=== PATIENT | female | born 1975 | race Caucasian/White ===

== ENCOUNTER 2016-03-30 12:13 | Inpatient (IN) | payer OTHER ==
[~2016-03-30] VITALS: Ht 157.5 cm; Wt 71.1 kg
[2016-03-31] MEDS ORDERED: CLB/200 PO (16:59)
[2016-03-31] MEDS ORDERED: AMOX500C3 PO (16:59)
[2016-03-31] MEDS ORDERED: BACL1TAB PO (17:02)
[2016-03-31] MEDS ORDERED: SODIUM CHLORIDE 0.65% NA SOLN 45 ML (OCEAN) PRN (18:00)
[2016-03-31] MEDS ORDERED: MAGNESIUM HYDROXIDE SUSP 30 ML UDC PO PRN (18:00)
[2016-03-31] MEDS ORDERED: BISMUTH SUBSALICYLATE PER ML OMNICELL CHARGE PO PRN (18:00)
[2016-03-31] MEDS ORDERED: ALUMINUM/MAGNESIUM SUSP 30 ML UDC PO PRN (18:00)
[2016-03-31] MEDS ORDERED: NURSING VERBAL MED ORDER ONE (18:00)
[2016-03-31] MEDS ORDERED: hydrOXYzine HCL 25 MG TAB PO PRN ×2 (18:00)
[2016-03-31] MEDS ORDERED: ACETAMINOPHEN 325 MG TAB PO PRN (18:00)
[2016-03-31 20:44] VITALS: BP 138/91; PULSE 85; TEMP 36.9; Ht 157.5 cm; Wt 71.1 kg
[2016-03-31] MEDS: AMOXICILLIN 500 MG CAP PO SCH (21:53)
[2016-03-31] MEDS: CeleBREX 200 MG CAP PO SCH (21:53)
[2016-04-01 06:51] VITALS: BP_SYST 115; BP_SYST 125; BP_DIAS 79; PULSE 91; PULSE 96; TEMP 37
[2016-04-01] MEDS: CeleBREX 200 MG CAP PO SCH ×2 (09:08→21:51)
[2016-04-01] MEDS: AMOXICILLIN 500 MG CAP PO SCH ×3 (09:09→21:50)
[2016-04-01] MEDS ORDERED: DULOXETINE (CYMBALTA) 30 MG CAP PO ONE (11:30)
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
[2016-04-02 06:52] VITALS: BP_SYST 121; BP_SYST 125; BP_DIAS 84; BP_DIAS 87; PULSE 73; PULSE 86; TEMP 36.8
[2016-04-02] MEDS: AMOXICILLIN 500 MG CAP PO SCH ×2 (08:58→14:18)
[2016-04-02] MEDS: CeleBREX 200 MG CAP PO SCH ×2 (08:59→21:13)
[2016-04-02] MEDS: DULOXETINE (CYMBALTA) 30 MG CAP PO SCH (08:59)
--- NOTE | 2016-04-02 10:47 | Psychiatric Progress Notes ---
Progress Note Date of Service Apr 02, 2016. Interval History 40 yo female initially admitted to [facility] following an intentional OD after asked for a divorce. She was transferred to our facility voluntarily on 03/31/16 to be closer to her home and family in [place]. Chief Complaint "OK". Subjective Patient was seen & assessed interval progress reviewed with Treatment Team. The patient had a meeting with her yesterday and the outcome "was not was I expected.". She said that he still wants them to live separately for a while until they each have a chance to think, perhaps as long as several months. He would like to table couples therapy until they have had this period to think. She describes it as "not done, just paused.". Her anxiety remains high, but denies panic. Her sleep was "a little bit" last night, but still struggling to stay asleep. Her appetite is low, describing having a "sick, nervous stomach" when she thinks about eating. She plans to stay with her parents at discharge and her parents visited last evening, and are fully aware of the situation. She denies any further SI today. She continues to have numbness in her left lower extremity and is asking to have it evaluated. Review of Systems Constitutional: + fatigue ENT: No dental problems, No hearing loss, No nasal symptoms, No problem reported, No sore throat, No tinnitus, No trouble swallowing, No unusual epistaxis Respiratory: No cough, No dyspnea at rest, No dyspnea on exertion, No hemoptysis, No problem reported, No shortness of breath, No sputum, No wheezing Cardiovascular: No PND, No chest pain, No claudication, No edema, No orthopnea , No palpitations, No problem reported Abdomen: No GI bleeding, No constipation, No diarrhea, No nausea, No pain, No problem reported, No vomiting Musculoskeletal: No calf pain, No joint pain, No muscle pain, No problem reported, No swelling Neurologic: No balance problems, No memory loss, No numbness/tingling, No paralysis, No problem reported, No vertigo, No weakness Psychiatric: + anxiety, + depression symptoms, + insomnia Integumentary: No bleeding, No color change, No itch, No new/changing skin lesions, No problem reported, No rash Sleep Information Total Hours of Sleep: 7.25 Meal Information Percent of Breakfast Consumed: 100 Percent of Lunch Consumed: 50 Percent of Dinner Consumed: 75 Mental Status Exam During interview pt is: alert and oriented, cooperative Appearance: appropriately dressed, appropriately groomed Eye contact is: good Motor behavior is: steady gait & station, no abnormal motor movements Speech: normal in rate, rhythm & volume Affect: tearful Mood is: depressed, anxious Thought process: goal directed, clear, coherent Thought content: reality based without delusions Suicidal thought are: denied Homicidal thoughts are: denied Hallucinations: denies auditory, denies visual Cognition: memory grossly intact, attention grossly intact Intelligence estimated to be: average Insight: impaired Judgement: impaired Impression The patient is adjusting to the structure and support of the milieu. now saying he wants a separation before considering how they move forward. She continues to be sad about this, but understands his position and willing to agree to it. She will go to her parents home. her anxiety remains high, and not sleeping. Started Cymbalta 30 mg. yesterday and will continue another day or two before increasing. Will also need aftercare. Will order a medicine consult to evaluate left lower extremity numbness. Continued Inpatient Care The patient requires inpatient care due to the severity of her condition, and the risk for self harm if discharged. Plan (1) Major depressive disorder, single episode, severe without psychotic features 04/02 - Continue Cymbalta 30 mg. daily titrating as tolerated - Family meeting with held yesterday - Arrange aftercare - Q 15 min checks for safety - Encourage participation in group and individual counseling. - Assist the patient to learn and utilize additional healthy coping strategies. (2) RITA (generalized anxiety disorder) 04/02 - Meds as above - Expose the patient to mindfulness, relaxation exercises, breathing exercises. - Encourage exercise - Prn vistaril for anxiety or sleep (3) Ankylosing spondylitis 04/02 - Hysterectomy 1.5 months ago has been helpful in alleviating pain - Will continue Celebrex 200 mg. BID Discharge / Aftercare Planning Primary Care Physician: Name: Briankristine martinez [place] Visit Code E&M Code: 95221 Risk Factors Assessment : Yes /single/: Yes () Higher / Fall in social status: No Access to guns: No Health problems: Yes Mental Health Diagnoses: No Substance use disorders: No Previous attempt: No Previous psychiatric stay: No Smoker: No Protective Factors Assessment Judaism beliefs: Yes : Yes Employed: Yes Stable relationships: No Supportive family: Yes Data Vital Signs Last 24 Hrs: Date Time Temp Pulse Resp B/P Pulse Ox O2 Delivery O2 Flow Rate FiO2 04/02/16 06:52 36.8 73 16 125/87 86 121/84 Meds Administered Last 24 Hrs: Meds Administered (Past 24Hrs) Medications (Trade) Dose Ordered Sig/Rashmi Route Start Time Stop Time Status Last Admin Dose Admin Amoxicillin (Amoxil Cap) 500 mg TID PO 03/31/16 22:00 04/02/16 21:59 04/02/16 08:58 500 MG Celecoxib (CeleBREX CAP) 200 mg BID PO 03/31/16 22:00 04/30/16 21:59 04/02/16 08:59 200 MG Duloxetine HCl (Cymbalta Cap) 30 mg QAM PO 04/02/16 09:00 05/02/16 08:59 04/02/16 08:59 30 MG Duloxetine HCl (Cymbalta Cap) 30 mg TODAY@1130 ONCE PO 04/01/16 11:30 04/01/16 11:31 DC 04/01/16 11:57 30 MG Lab Results Last 24 Hrs: Last 24 Hours Test 04/01/16 10:57 Thyroid Stimulating Hormone (TSH) 0.717 uIu/ml
[2016-04-02] MEDS ORDERED: CYCLOBENZAPRINE HCL 5 MG TAB PO PRN (13:30)
--- NOTE | 2016-04-02 14:29 | Medical Consult ---
Consultation Date of Consultation: Apr 02, 2016. Attending Physician: Diandra Garcia MD Reason for Consultation: LLE numbness History of Present Illness This is a 40 y/o female with a history of Factor V Leiden deficiency, ankylosing spondylitis, anxiety, and Scales's neuroma of the left foot who presents with left lower extremity numbness. The patient had an intentional overdose of baclofen, ibuprofen, and Percocet, causing her to be life-flighted to [facility] in [place] and intubated. When she was medically stable, she was transferred to the mental health unit here on 03/31 to be closer to her family. The patient complains of left lower extremity weakness since the overdose first occurred on 03/28. She does have a history of Scales's neuroma in her left foot and has some numbness and burning pain at the ball of her left foot at baseline. Since the overdose, however, her entire left foot feels numb and tingling, and she has tightness going up the back of her left leg. The patient states that she sometimes has difficulty walking because she has decreased sensation in her foot. She complains of a 3/10 burning pain in her foot, especially on the plantar surface. She has not noticed anything that makes it better or wrose. She also complains of numbness on the right side of lips. She has been more sweaty than usual and complains of dizziness upon standing. She has not had much appetite but is tolerating a PO diet. The patient denies fevers, chills, chest pain, palpitations, claudication, cough, wheezing, shortness of breath, nausea, vomiting, abdominal pain, dysuria, hematuria, urinary retention, paralysis, and weakness. Past Medical/Surgical History Medical Problems: (1) Ankylosing spondylitis Status: Chronic (2) RITA (generalized anxiety disorder) Status: Chronic (3) Major depressive disorder, single episode, severe without psychotic features Status: Acute Factor V Leiden deficiency H/o hysterectomy 02/19 Family History Coronary artery disease Diabetes mellitus Factor V Leiden mutation Hyperlipidemia Hypertension Social History Smoking Status: Former Smoker (quit 10 years ago) Smokeless Tobacco Use: No Alcohol Use: socially (3-4 beers once a week when going out) Drug Use: none Marital Status: Housing Status: lives with significant other ( just prior to admission , had been living with friend for a few days) Occupation Status: employed Allergies Coded Allergies: Garlic (Unverified Adverse Reaction, Intermediate, face reddens, nose runs , 03/31/16) Apple (Unverified Adverse Reaction, Mild, nose runs, face reddened, ) [place] (Unverified Adverse Reaction, Mild, face reddens, nose runs, 03/31/16 ) Uncoded Allergies: turkey (Adverse Reaction, Mild, face reddened, nose runs, 03/31/16) Current Inpatient Medications Current Inpatient Medications Medications (Trade) Dose Ordered Sig/Rashmi Route Start Time Stop Time Status Last Admin Dose Admin Acetaminophen (Tylenol Tab) 650 mg Q4H PRN PO 03/31/16 18:00 04/30/16 17:59 Al Hydroxide/Mg Hydroxide (Maalox Susp) 30 ml Q4H PRN PO 03/31/16 18:00 04/30/16 17:59 Bismuth Subsalicylate (Kaopectate Liqd) 15 ml DAILY PRN PO 03/31/16 18:00 04/30/16 17:59 Magnesium Hydroxide (Milk Of Magnesia Susp) 30 ml DAILY PRN PO 03/31/16 18:00 04/30/16 17:59 Sodium Chloride ([place] Nasal [place]) PRN PRN NA 03/31/16 18:00 04/30/16 17:59 Hydroxyzine HCl (Vistaril Tab) 50 mg HSZ PRN PO 03/31/16 18:00 04/30/16 17:59 Hydroxyzine HCl (Vistaril Tab) 25 mg Q4H PRN PO 03/31/16 18:00 04/30/16 17:59 Amoxicillin (Amoxil Cap) 500 mg TID PO 03/31/16 22:00 04/02/16 21:59 04/02/16 08:58 500 MG Celecoxib (CeleBREX CAP) 200 mg BID PO 03/31/16 22:00 04/30/16 21:59 04/02/16 08:59 200 MG Duloxetine HCl (Cymbalta Cap) 30 mg QAM PO 04/02/16 09:00 05/02/16 08:59 04/02/16 08:59 30 MG Review of Systems See HPI for pertinent positives and negatives. All other systems reviewed and negative. Physical Exam Date Time Temp Pulse Resp B/P Pulse Ox O2 Delivery O2 Flow Rate FiO2 04/02/16 06:52 36.8 73 16 125/87 86 121/84 General Appearance: WD/WN, no apparent distress Head: normocephalic, atraumatic Eyes: normal inspection, PERRL, EOMI ENT: normal ENT inspection, hearing grossly normal, pharynx normal Neck: supple, no JVD, trachea midline Respiratory/Chest: lungs clear, normal breath sounds, no respiratory distress Cardiovascular: regular rate, rhythm, no gallop, no murmur Abdomen/GI: normal bowel sounds, non tender, soft Extremities/Musculoskelatal: normal inspection, no calf tenderness, normal capillary refill, no pedal edema, + pertinent finding (left foot TTP) Neurologic/Psych: alert, normal mood/affect, oriented x 3, + motor weakness ( weakness in left foot especially with plantar flexion, 4/5), + abnormal reflexes (absent Babinski reflex left side) Skin: normal color, warm/dry, no rash Assessment & Plan 40 y/o female with a history of Factor V Leiden deficiency, ankylosing spondylitis, anxiety, and Scales's neuroma of the left foot who presents with left lower extremity numbness. C/o burning pain and numbness in entire left foot, especially plantar surface. Tightness going up back of left leg. Numbness in lips on right side. Symptoms began after overdose 03/28 and subsequent intubation. No improvement over last week. Neuropathy -TSH WNL at 0.717 -Check B12 and folate levels -H/o ankylosing spondylitis, could contribute to neuropathy. X-ray of SI joint 3 view ordered -Trial of gabapentin 300 mg PO TID for neuropathic pain -H/o Scales's neuroma may be contributing as well as recent overdose and intubation -Continue to monitor for change in symptoms/severity Anxiety, intentional overdose suicide attempt -As per psych -Continue Cymbalta 30 mg PO qd and hydroxyzine 25 mg PO q4h prn anxiety Code Status -Level I, FULL RESUSCITATION STATUS Thank you for this consultation. We will continue to follow. Reviewed: Pt Seen/Exam by Me, RN Notes, HO Notes, Prior Records, Labs, RAD, EKG History I agree with PA medical consult except for some modifications as below: A 40 yo female with a history of Factor V Leiden deficiency, ankylosing spondylitis, anxiety, and Scales's neuroma of the left foot who presents with left lower extremity numbness. C/o burning pain and numbness in entire left foot, especially plantar surface. Tightness going up back of left leg. Numbness in lips on right side. Symptoms began after overdose 03/28 and subsequent intubation. Currently complains of burning pain in her left foot with occasional muscle cramps. Constitutional: denies: chills EENTM: denies: tearing Respiratory: negative: cough Gastrointestinal/Abdominal: negative: abdominal pain Genitourinary: negative discharge Musculoskeletal: negative: back pain Skin: negative: change in color Neurological/Psych: negative: anxiety Hematologic/Lymphatic: negative: anemia General Appearance: WD/WN, no apparent distress Eye Exam: bilateral eye normal inspection Ears, Nose, Throat: hearing grossly normal Neck: full range of motion, normal inspection Respiratory: chest non-tender, normal breath sounds Cardiovascular: regular rate, rhythm, no gallop Gastrointestinal: normal bowel sounds, soft Extremities: normal range of motion, non-tender, no pedal edema, slow capillary refill Neurologic/Psychiatric: fine artist II-XII nml as tested, no motor/sensory deficits, alert, normal mood/affect, other (normal gait) Skin Characteristics: other (cold to touch, some mottling left foot present, decreased pulses b/l, babinski negative) Assessment/Plan A 40 yo female with a history of Factor V Leiden deficiency, ankylosing spondylitis, anxiety, and Scales's neuroma of the left foot who presents with left lower extremity numbness. C/o burning pain and numbness in entire left foot, especially plantar surface. Tightness going up back of left leg. Numbness in lips on right side. Symptoms began after overdose 03/28 and subsequent intubation. Peripheral Neuropathy likely secondary to underlying scales`s neuroma symptoms exacerbated by recent drug overdose TSH WNL at 0.717 Check B12 and folate levels start gabapentin 300 mg PO TID for neuropathic pain Continue to monitor for change in symptoms/severity If symptoms are worse, may consult neurology and will require outpatient EMG/ nerve conduction studies done may need Flexeril if spasms continued to persists H/o ankylosing spondylitis, could contribute to neuropathy. X-ray of SI joint: no active inflammation Anxiety, intentional overdose suicide attempt psych is primary attending Continue Cymbalta 30 mg PO qd and hydroxyzine 25 mg PO q4h prn anxiety Code Status: FULL RESUSCITATION STATUS case discussed with Eli Hanna time spent 40 min
--- NOTE | 2016-04-02 15:01 | DIAGNOSTIC IMAGING REPORT ---
SI JOINTS 3 OR MORE VIEWS CLINICAL HISTORY: There are a few. Spondylitis. COMPARISON STUDY: No previous studies for comparison. FINDINGS: There is a 12 mm sclerotic lesion within the left supra-acetabular region. In the absence of a known primary malignancy, this likely represents a bone island. There are sclerotic changes involving the iliac side of the right SI joint. There is no SI joint fusion. There are no erosive changes to indicate an inflammatory sacroiliitis. IMPRESSION: 1. Presumed bone island involving the left supra acetabular region 2. Mild osteitis condensans ilii 3. No evidence of an inflammatory sacroiliitis Electronically signed by: Sam Rodriguez M.D. 04/02/2016 3:00 PM Dictated Date/Time: 04/02/2016 2:56 PM
[2016-04-02] MEDS: GABAPENTIN 300 MG CAP PO SCH (21:13)
[2016-04-03 06:50] VITALS: BP_SYST 114; BP_SYST 125; BP_DIAS 63; BP_DIAS 76; PULSE 70; PULSE 79; TEMP 36.9
[2016-04-03] MEDS: GABAPENTIN 300 MG CAP PO SCH ×3 (08:17→21:55)
[2016-04-03] MEDS: CeleBREX 200 MG CAP PO SCH ×2 (08:17→21:55)
[2016-04-03] MEDS: DULOXETINE (CYMBALTA) 30 MG CAP PO SCH (08:17)
--- NOTE | 2016-04-03 11:52 | Progress Note ---
Subjective Subjective Date of Service: Apr 03, 2016. Pt evaluation today including: conversation w/ patient, physical exam, chart review, review of studies, review of inpatient medication list Problem List Medical Problems: (1) Ankylosing spondylitis Status: Chronic (2) RITA (generalized anxiety disorder) Status: Chronic (3) Major depressive disorder, single episode, severe without psychotic features Status: Acute Review of Systems Constitutional: No fever ENT: No hearing loss Respiratory: No cough Cardiac: No chest pain Abdomen: No pain Musculoskeletal: + problem reported (left foot numbness persists) Female : No dysuria Neurologic: No memory loss Endo: No fatigue Physical Exam Vital Signs Vital Signs Past 24 Hours: Date Time Temp Pulse Resp B/P Pulse Ox O2 Delivery O2 Flow Rate FiO2 04/03/16 06:50 36.9 70 16 114/76 79 125/63 Physical Exam: General Appearance: WD/WN, no apparent distress Eyes: bilateral eyes normal inspection ENT: hearing grossly normal, pharynx normal Neck: supple, no JVD Respiratory/Chest: chest non-tender, no respiratory distress Cardiovascular: no gallop, no murmur Abdomen: non tender, no organomegaly Extremities: non-tender, no pedal edema, + pertinent finding (tenderness on palpation left foot base of toes, patient is shuffling when walks) Neurologic/Psychiatric: no motor/sensory deficits, normal mood/affect Skin: no rash Medications Medications: Current Inpatient Medications Medications (Trade) Dose Ordered Sig/Rashmi Route Start Time Stop Time Status Last Admin Dose Admin Acetaminophen (Tylenol Tab) 650 mg Q4H PRN PO 03/31/16 18:00 04/30/16 17:59 Al Hydroxide/Mg Hydroxide (Maalox Susp) 30 ml Q4H PRN PO 03/31/16 18:00 04/30/16 17:59 Bismuth Subsalicylate (Kaopectate Liqd) 15 ml DAILY PRN PO 03/31/16 18:00 04/30/16 17:59 Magnesium Hydroxide (Milk Of Magnesia Susp) 30 ml DAILY PRN PO 03/31/16 18:00 04/30/16 17:59 Sodium Chloride ([place] Nasal [place]) PRN PRN NA 03/31/16 18:00 04/30/16 17:59 Hydroxyzine HCl (Vistaril Tab) 50 mg HSZ PRN PO 03/31/16 18:00 04/30/16 17:59 Hydroxyzine HCl (Vistaril Tab) 25 mg Q4H PRN PO 03/31/16 18:00 04/30/16 17:59 Celecoxib (CeleBREX CAP) 200 mg BID PO 03/31/16 22:00 04/30/16 21:59 04/03/16 08:17 200 MG Duloxetine HCl (Cymbalta Cap) 30 mg QAM PO 04/02/16 09:00 05/02/16 08:59 04/03/16 08:17 30 MG Gabapentin (Neurontin Cap) 300 mg TID PO 04/02/16 22:00 05/02/16 21:59 04/03/16 08:17 300 MG Laboratory Data Labs: Last 24 Hours Test 04/02/16 14:51 Vitamin B12 Level 1351 pg/mL Folate 20.42 ng/mL Assessment and Plan A 40 yo female with a history of Factor V Leiden deficiency, ankylosing spondylitis, anxiety, and Scales's neuroma of the left foot who presents with left lower extremity numbness. C/o burning pain and numbness in entire left foot, especially plantar surface. Tightness going up back of left leg. Numbness in lips on right side. Symptoms began after overdose 03/28 and subsequent intubation. Peripheral Neuropathy likely secondary to underlying scales`s neuroma symptoms exacerbated by recent drug overdose, not improving TSH WNL at 0.717 B12 and folate levels ok cont gabapentin 300 mg PO TID for neuropathic pain Continue to monitor for change in symptoms/severity consult neurology and will require outpatient EMG/nerve conduction studies done PT/OT eval check cortisol, hgba1c levels check metanephrines due to profuse sweating H/o ankylosing spondylitis, could contribute to neuropathy. X-ray of SI joint: no active inflammation Anxiety, intentional overdose suicide attempt psych is primary attending Continue Cymbalta 30 mg PO qd and hydroxyzine 25 mg PO q4h prn anxiety Code Status: FULL RESUSCITATION STATUS
--- NOTE | 2016-04-03 12:37 | Psychiatric Progress Notes ---
Progress Note Date of Service Apr 03, 2016. Interval History 40 yo female initially admitted to [facility] following an intentional OD after asked for a divorce. She was transferred to our facility voluntarily on 03/31/16 to be closer to her home and family in [place]. Chief Complaint "Mood less depressed". Subjective Patient was seen & assessed interval progress reviewed with nursing staff. Patient reports that her mood is gradually improving and she is more hopeful. She feels saddened with plan to remain from her but feels well supported by her parents and their willingness for patient to stay with them after discharge. Appreciate Medicine consultation and recommendations to address left lower extremity numbness. Patient denies any thoughts to harm herself or others. Denies any current side effects from medications but admits that she experienced mild nausea when she first initiated Cymbalta. Review of Systems Psych: denies symptoms other than stated above Constitutional: Sleeping 7 1/2 hours per night. Energy level good. Appetite good. Cardiovascular: denied GI: denied Neurologic: denied Remainder of 10 body systems also reviewed and denied other than noted above. Sleep Information Total Hours of Sleep: 7.50 Meal Information Percent of Breakfast Consumed: 100 Percent of Lunch Consumed: 75 Percent of Dinner Consumed: 100 Mental Status Exam During interview pt is: alert and oriented, cooperative Appearance: appropriately dressed, appropriately groomed Eye contact is: good Motor behavior is: steady gait & station, no abnormal motor movements Speech: normal in rate, rhythm & volume Affect: tearful Mood is: depressed, anxious Thought process: goal directed, clear, coherent Thought content: reality based without delusions Suicidal thought are: denied Homicidal thoughts are: denied Hallucinations: denies auditory, denies visual Cognition: memory grossly intact, attention grossly intact Intelligence estimated to be: average Insight: limited Judgement: limited Impression The patient is adjusting to the structure and support of the milieu. now saying he wants a separation before considering how they move forward. She continues to be sad about this, but understands his position and willing to agree to it. She will go to her parents home. her anxiety remains high, and not sleeping. Started Cymbalta 30 mg. yesterday and will continue another day or two before increasing. Will also need aftercare. Will order a medicine consult to evaluate left lower extremity numbness. Continued Inpatient Care The patient requires inpatient care due to the severity of her condition, and the risk for self harm if discharged. Plan (1) Major depressive disorder, single episode, severe without psychotic features 04/02 - Continue Cymbalta 30 mg. daily titrating as tolerated - Family meeting with held yesterday - Arrange aftercare - Q 15 min checks for safety - Encourage participation in group and individual counseling. - Assist the patient to learn and utilize additional healthy coping strategies. 04/03 -Increase Cymbalta to 60mg to further address depression and anxiety. (2) RITA (generalized anxiety disorder) 04/02 - Meds as above - Expose the patient to mindfulness, relaxation exercises, breathing exercises. - Encourage exercise - Prn vistaril for anxiety or sleep 04/03 -Increase Cymbalta to 60mg to further address depression and anxiety. (3) Ankylosing spondylitis 04/02 - Hysterectomy 1.5 months ago has been helpful in alleviating pain - Will continue Celebrex 200 mg. BID Discharge / Aftercare Planning Primary Care Physician: Name: Brian martinez [place] Visit Code E&M Code: 57815 Risk Factors Assessment : Yes /single/: Yes () Higher / Fall in social status: No Access to guns: No Health problems: Yes Mental Health Diagnoses: No Substance use disorders: No Previous attempt: No Previous psychiatric stay: No Smoker: No Protective Factors Assessment Congregation beliefs: Yes : Yes Employed: Yes Stable relationships: No Supportive family: Yes Data Vital Signs Last 24 Hrs: Date Time Temp Pulse Resp B/P Pulse Ox O2 Delivery O2 Flow Rate FiO2 04/03/16 06:50 36.9 70 16 114/76 79 125/63 Meds Administered Last 24 Hrs: Meds Administered (Past 24Hrs) Medications (Trade) Dose Ordered Sig/Rashmi Route Start Time Stop Time Status Last Admin Dose Admin Duloxetine HCl (Cymbalta Cap) 30 mg QAM PO 04/02/16 09:00 05/02/16 08:59 04/03/16 08:17 30 MG Gabapentin (Neurontin Cap) 300 mg TID PO 04/02/16 22:00 05/02/16 21:59 04/03/16 08:17 300 MG Lab Results Last 24 Hrs: Last 24 Hours Test 04/02/16 14:51 Vitamin B12 Level 1351 pg/mL Folate 20.42 ng/mL
--- NOTE | 2016-04-03 13:50 | CONSULTATION REPORT ---
DATE OF CONSULTATION: 04/03/2016 Consultation for Diandra Garcia MD of psychiatry. HISTORY OF PRESENT ILLNESS: Lian is 40 years old, is known to Dr. Sulma Torres of [facility] and has factor V Leiden deficiency, ankylosing spondylitis, anxiety and Zhao neuroma of left foot. She is known to our rheumatology practice out in [facility] She had a recent hysterectomy and thinks this helps her ankylosing spondylitis pain. She does have a history of back pain, claims she has had some spinal imaging studies which do not show any significant nerve root compromise, but again I do not have details of what imaging might have been done. She had an intentional overdose of baclofen, ibuprofen and Percocet, causing her to be life flighted to [facility] in [place], intubated and was then transferred back here when medically stable and has been here about 2 days. She resides in [place], so it was felt that her psychiatric care should be rendered closer to home. She has no real recall of many of the events at [facility] other than the fact that she apparently was intubated and tried to pull the tube out and may have damaged the right side of her lips and was told by the [facility] staff that the numbness she had after this attempt would gradually disappear. She still has some of it and it is not clear how long it was anticipated this would persist. The other issue that evolved was that of numbness involving the distal portions of the left leg and dorsum of the foot along with some paresthetic painful sensations in that same distribution and a left mild foot drop. There was no particular back pain or increase in her chronic back pain and it is not clear how she was positioned, how long she had been in the automobile, whether her knee had been compressed or whether she had prolonged compression of her gluteal region. She right now is bothered by the paresthesias which have not improved much, although she thinks may be a little better and a mild degree of clumsiness when walking and slight left foot drop. She really does not have any sciatica, gluteal pain, posterior hamstring pain but does have a little tenderness over the lateral aspect of her leg near the fibular head. PAST MEDICAL HISTORY: Otherwise unremarkable, includes ankylosing spondylitis, generalized anxiety disorder, major depression, factor V Leiden deficiency and a history of recent hysterectomy on 02/20/16. FAMILY HISTORY: Positive for coronary artery disease, diabetes, factor V Leiden mutation, dyslipidemia and hypertension. SOCIAL HISTORY: Reveals her to be a former smoker. She drinks 3-4 beers once a week when going out. She does not use illicit drugs. She is . She lives with her significant other and she is employed. ALLERGIES: SHE HAS ALLERGIES TO GARLIC, APPLE AND PEACH AND POSSIBLY TURKEY. MEDICATIONS: At home include Tylenol as needed, magnesium hydroxide, sodium chloride nasal spray, hydroxyzine for itching, amoxicillin, Celebrex, Cymbalta and now Neurontin has been added to help her pain. REVIEW OF SYSTEMS: Pretty unremarkable other than the overdose. She has had no systemic illnesses. No problems referable to head, eyes, ears, nose and throat, cardiovascular, pulmonary, gastrointestinal, genitourinary, or musculoskeletal systems other than those described above under her past medical history and history of present illness. Neurologically, she has never had any similar symptoms other than the pain in the left foot due to the Zhao neuroma which is usually in the plantar surface and does not radiate up. She really denies any history of prior sciatica in the left or right side, but has had some nonspecific nonradiating low back pain. PHYSICAL EXAMINATION: VITAL SIGNS: Upon admission, her blood pressure is 125/87, pulse was 73 and regular. She was afebrile. Respirations 16. GENERAL: She is well developed, well nourished. HEENT: Normal examination. CARDIOVASCULAR: Normal without murmurs, gallops or abnormal rhythm. LUNGS: Her lungs were clear. ABDOMEN: Soft, nontender. EXTREMITIES: Examination was unremarkable. NEUROLOGIC: Today, she is awake, alert, oriented in 3 spheres. She has normal extraocular movements, normal visual obrien, normal facial motility and strength. There is a slight degree of numbness in the circumoral area in the right face to touch, but this does not spread out over the distribution of any single division of the trigeminal nerve. Tongue protrudes in the midline. Speech is clear. Gait, station and coordination reveal some mild steppage component to her gait on the left. Otherwise, there is no spasticity, ataxia, drift, pronation sign, tremor, tics or choreiform activity. Reflexes are all 1+ symmetrical. One could argue that the left ankle jerk is a little down, but this is pretty subtle. Toe signs are flexor. Strength testing reveals mild, perhaps one-grade weakness in the anterior tibialis, extensor hallucis longus and extensor digitorum brevis muscles and perhaps in the peroneus longus. I think the inverters of the foot on the left are normal. Plantar flexion is normal. Hamstrings are normal, quadriceps strength is normal. On the right, there is absolutely no muscle weakness. There is a little subjective alteration in the appreciation of light touch and perhaps temperature over the left anterior compartment and dorsum of the foot and there is tenderness of the left peroneal to palpation of the fibular head with some radiation of paresthesias, joseph to a Tinel sign. Straight leg raising is negative. External and internal rotation about the hip is normal. My suspicions are that the right circumoral paresthesias are indeed due to pressure placed on some of the branches of the trigeminal nerve in the region of the lips secondary to her attempted self extubation. This may persist for some time but I do not think we really need to do any imaging studies as she has no other findings that would suggest a vascular event or brain stem lesion. Furthermore, she had 1 imaging study there, i.e. 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 The left leg issue I think is due to a common peroneal mononeuropathy, probably due to compression, possibly due to her stuporous state in the automobile with compression of the nerve against the car seat or another hard object. It is possible this occurred after she was intubated and positioned at the [facility]. I do not think there is an L5 motor radiculopathy based on exam. At this point, there is not much we can do other than offer a tincture of time and caution against crossing her legs, particularly left over right. I could easily see her in about a month to perform an EMG at [facility] and at the time of discharge I would suggest she be scheduled for this. I can review the current note, do the study and if there is evidence on that for an L5 motor radiculopathy, then we will probably do an MRI of the back but for now, I do not think we need to do this as I am strongly suspicious that this is peroneal neuropathy and will improve with time. I do not think I need to see her on a regular basis while in the hospital. Please call me again if things decline or if her condition changes. MG
[2016-04-04 06:52] VITALS: BP_SYST 107; BP_SYST 110; BP_DIAS 68; BP_DIAS 75; PULSE 66; PULSE 72; TEMP 36.8
[2016-04-04] MEDS: DULOXETINE (CYMBALTA) 30 MG CAP PO SCH (08:44)
[2016-04-04] MEDS: CeleBREX 200 MG CAP PO SCH ×2 (08:44→21:37)
[2016-04-04] MEDS: GABAPENTIN 300 MG CAP PO SCH ×3 (08:45→21:37)
--- NOTE | 2016-04-04 13:04 | Progress Note ---
Subjective Subjective Date of Service: Apr 04, 2016. Pt evaluation today including: conversation w/ patient, physical exam, chart review, review of studies, review of inpatient medication list Problem List Medical Problems: (1) Ankylosing spondylitis Status: Chronic (2) RITA (generalized anxiety disorder) Status: Chronic (3) Major depressive disorder, single episode, severe without psychotic features Status: Acute Review of Systems Constitutional: No fever Eyes: No worsening of vision ENT: No hearing loss Respiratory: No cough Cardiac: No chest pain Abdomen: No pain Female : No dysuria Neurologic: + numbness/tingling (left foot), No memory loss Psychiatric: No depression symptoms Heme: No abnormal bleeding/bruising Endo: No fatigue Physical Exam Vital Signs Vital Signs Past 24 Hours: Date Time Temp Pulse Resp B/P Pulse Ox O2 Delivery O2 Flow Rate FiO2 04/04/16 06:52 36.8 66 16 107/68 72 110/75 Physical Exam: General Appearance: WD/WN, no apparent distress Eyes: bilateral eyes normal inspection ENT: hearing grossly normal, pharynx normal Neck: supple, no JVD Respiratory/Chest: chest non-tender, normal breath sounds Cardiovascular: no edema, no murmur Abdomen: non tender Extremities: + pertinent finding (abnormal gait due to pulling left foot) Neurologic/Psychiatric: alert, oriented x 3 Medications Medications: Current Inpatient Medications Medications (Trade) Dose Ordered Sig/Rashmi Route Start Time Stop Time Status Last Admin Dose Admin Acetaminophen (Tylenol Tab) 650 mg Q4H PRN PO 03/31/16 18:00 04/30/16 17:59 Al Hydroxide/Mg Hydroxide (Maalox Susp) 30 ml Q4H PRN PO 03/31/16 18:00 04/30/16 17:59 Bismuth Subsalicylate (Kaopectate Liqd) 15 ml DAILY PRN PO 03/31/16 18:00 04/30/16 17:59 Magnesium Hydroxide (Milk Of Magnesia Susp) 30 ml DAILY PRN PO 03/31/16 18:00 04/30/16 17:59 Sodium Chloride ([place] Nasal [place]) PRN PRN NA 03/31/16 18:00 04/30/16 17:59 Hydroxyzine HCl (Vistaril Tab) 50 mg HSZ PRN PO 03/31/16 18:00 04/30/16 17:59 Hydroxyzine HCl (Vistaril Tab) 25 mg Q4H PRN PO 03/31/16 18:00 04/30/16 17:59 Celecoxib (CeleBREX CAP) 200 mg BID PO 03/31/16 22:00 04/30/16 21:59 04/04/16 08:44 200 MG Gabapentin (Neurontin Cap) 300 mg TID PO 04/02/16 22:00 05/02/16 21:59 04/04/16 08:45 300 MG Duloxetine HCl (Cymbalta Cap) 60 mg QAM PO 04/04/16 09:00 05/04/16 08:59 04/04/16 08:44 60 MG Laboratory Data Labs: Last 24 Hours Test 04/04/16 08:57 Cortisol AM Sample 22.00 mcg/dl Assessment and Plan A 40 yo female with a history of Factor V Leiden deficiency, ankylosing spondylitis, anxiety, and Zhao's neuroma of the left foot who presents with left lower extremity numbness. C/o burning pain and numbness in entire left foot, especially plantar surface. Tightness going up back of left leg. Numbness in lips on right side. Symptoms began after overdose 03/28 and subsequent intubation. common peroneal mononeuropathy,probably due to compression vs L5 radiculopathy TSH WNL at 0.717 B12 and folate levels ok cont gabapentin 300 mg PO TID for neuropathic pain Continue to monitor for change in symptoms/severity appreciated neurology input, patient will require outpatient EMG/nerve conduction studies done in few weeks PT/OT eval completed, no need for rehab am cortisol nl, check hgba1c levels check metanephrines due to profuse sweating H/o ankylosing spondylitis, could contribute to neuropathy. X-ray of SI joint: no active inflammation Anxiety, intentional overdose suicide attempt management as per primary team Continue Cymbalta 30 mg PO qd and hydroxyzine 25 mg PO q4h prn anxiety Code Status: FULL RESUSCITATION STATUS
--- NOTE | 2016-04-04 14:25 | Psychiatric Progress Notes ---
Progress Note Date of Service Apr 04, 2016. Interval History 40 yo female initially admitted to [facility] following an intentional OD after asked for a divorce. She was transferred to our facility voluntarily on 03/31/16 to be closer to her home and family in [place]. Chief Complaint "Okay". Subjective Patient was seen & assessed interval progress reviewed with nursing staff. Patient reports that she has been more tearful and attributes this to sadness over separation with her marriage and moving in with her parents after discharge. She is tolerating Cymbalta well and dosage increased this morning to 60mg daily. She is attending groups. Denies thoughts to harm self or others. She has regrets for attempting suicide. Increased sweating. Review of Systems Psych: denies symptoms other than stated above Constitutional: Slept 6 hours and felt that her sleep was much more restful but remains tired. Appetite good. Cardiovascular: denied GI: denied Neurologic: Numbness on right side of face and left lower extremity. Remainder of 10 body systems also reviewed and denied other than noted above. Sleep Information Total Hours of Sleep: 6.00 Meal Information Percent of Breakfast Consumed: 100 Percent of Lunch Consumed: 100 Percent of Dinner Consumed: 100 Mental Status Exam During interview pt is: alert and oriented, cooperative Appearance: appropriately dressed, appropriately groomed Eye contact is: good Motor behavior is: steady gait & station, no abnormal motor movements Speech: normal in rate, rhythm & volume Affect: tearful Mood is: depressed, anxious Thought process: goal directed, clear, coherent Thought content: reality based without delusions Suicidal thought are: denied Homicidal thoughts are: denied Hallucinations: denies auditory, denies visual Cognition: memory grossly intact, attention grossly intact Intelligence estimated to be: average Insight: limited Judgement: limited Impression The patient is adjusting to the structure and support of the milieu. now saying he wants a separation before considering how they move forward. She continues to be sad about this, but understands his position and willing to agree to it. She will go to her parents home. her anxiety remains high, and not sleeping. Started Cymbalta 30 mg. yesterday and will continue another day or two before increasing. Will also need aftercare. Will order a medicine consult to evaluate left lower extremity numbness. Continued Inpatient Care The patient requires inpatient care due to the severity of her condition, and the risk for self harm if discharged. Plan (1) Major depressive disorder, single episode, severe without psychotic features 04/02 - Continue Cymbalta 30 mg. daily titrating as tolerated - Family meeting with held yesterday - Arrange aftercare - Q 15 min checks for safety - Encourage participation in group and individual counseling. - Assist the patient to learn and utilize additional healthy coping strategies. 04/03 -Increase Cymbalta to 60mg to further address depression and anxiety. (2) RITA (generalized anxiety disorder) 04/02 - Meds as above - Expose the patient to mindfulness, relaxation exercises, breathing exercises. - Encourage exercise - Prn vistaril for anxiety or sleep 04/03 -Increase Cymbalta to 60mg to further address depression and anxiety. (3) Ankylosing spondylitis 04/02 - Hysterectomy 1.5 months ago has been helpful in alleviating pain - Will continue Celebrex 200 mg. BID (4) Lower extremity numbness 04/04 -appreciate Medical and Neurology input. Staff will set up follow up appointment in 1 month following discharge with Dr. Ivy for reassessment and EMG/nerve conduction. Discharge / Aftercare Planning Primary Care Physician: Name: Brian in [place] Neurologist: Name: Dr. Gary Ivy Appointment Notes: staff to call to set up appointment for follow up 1 month post discharge Visit Code E&M Code: 11859 Risk Factors Assessment : Yes /single/: Yes () Higher / Fall in social status: No Access to guns: No Health problems: Yes Mental Health Diagnoses: No Substance use disorders: No Previous attempt: No Previous psychiatric stay: No Smoker: No Protective Factors Assessment Judaism beliefs: Yes : Yes Employed: Yes Stable relationships: No Supportive family: Yes Data Vital Signs Last 24 Hrs: Date Time Temp Pulse Resp B/P Pulse Ox O2 Delivery O2 Flow Rate FiO2 04/04/16 06:52 36.8 66 16 107/68 72 110/75 Meds Administered Last 24 Hrs: Meds Administered (Past 24Hrs) Medications (Trade) Dose Ordered Sig/Rashmi Route Start Time Stop Time Status Last Admin Dose Admin Gabapentin (Neurontin Cap) 300 mg TID PO 04/02/16 22:00 05/02/16 21:59 04/04/16 13:54 300 MG Duloxetine HCl (Cymbalta Cap) 60 mg QAM PO 04/04/16 09:00 05/04/16 08:59 04/04/16 08:44 60 MG Lab Results Last 24 Hrs: Last 24 Hours Test 04/04/16 08:57 Cortisol AM Sample 22.00 mcg/dl
[2016-04-05 06:21] LABS: ESTIMATED AVERAGE GLUCOSE 103 mg/dl; HA1C FLAG Normal (Normal)
[2016-04-05 07:04] VITALS: BP_SYST 106; BP_SYST 109; BP_DIAS 68; BP_DIAS 73; PULSE 72; PULSE 73; TEMP 36.8
[2016-04-05] MEDS: GABAPENTIN 300 MG CAP PO SCH (08:50)
[2016-04-05] MEDS: DULOXETINE (CYMBALTA) 30 MG CAP PO SCH (08:50)
[2016-04-05] MEDS: CeleBREX 200 MG CAP PO SCH (08:50)
[2016-04-05] MEDS ORDERED: NRN300 PO (09:17)
[2016-04-05] MEDS ORDERED: CYM30 PO (09:17)
[2016-04-05] MEDS ORDERED: CLB/200 PO (09:17)
--- NOTE | 2016-04-05 09:35 | Discharge Instructions ---
Discharge Information Report Includes Report will include the: Discharge Instructions & Summary Admission Admission Date / Time: Mar 31, 2016 at 17:10 Reason for Admission: Major Depressive Disorder, Recurrent Discharge Discharge Diagnosis / Problem: Major depressive disorder, anxiety Condition at Discharge: Good Discharge Goals Goal(s): Decrease discomfort, Improve disease control, Prevent Disease Progression Activity Recommendations Activity Limitations: resume your previous activity Return to work on Tuesday . Instructions / Follow-Up Instructions / Follow-Up . SPECIAL CARE INSTRUCTIONS: 1. Follow through with your scheduled aftercare appointments. If unable to keep an appointment, please call to reschedule. 2. Take your medication only as prescribed. Medication should not be changed or stopped without the approval of your doctor. In the event of worsening symptoms or concerns about side effects, contact your doctor immediately. 3. Utilize new healthy coping skills, anger management skills, and stress management skills learned during your hospitalization. Journal feelings and process them with a support person. Identify stressors or situations that may result in relapse, deterioration or inappropriate behaviors and develop a plan to deal with those issues. 4. If your coping skills are ineffective and you are in crisis, contact your outpatient providers for direction. If unable to reach your providers, please call the CAN HELP LINE AT or go to the closest Emergency Room. 5. Avoid alcohol and un-prescribed drugs. 6. You have been provided with the Mental Health Advance Directives Pamphlet for your review. AFTERCARE APPOINTMENTS: * Please call your insurance company prior to your scheduled appointment to confirm your aftercare providers are covered. Take your insurance information to your appointments. . Discharge / Aftercare Planning Primary Care Physician: Name: Brian martinez [place] Neurologist: Name: Dr. Gary Ivy Appointment Notes: staff to call to set up appointment for follow up 1 month post discharge . Follow-Up Care Plan for Follow-Up Care: The patient will have prompt psychiatric follow up Current Hospital Diet Patient's current hospital diet: Regular Diet Discharge Diet Recommended Diet: Regular Diet Procedures Procedures Performed: No Pending Studies Pending Studies at Discharge: No Medical Emergencies . Who to Call and When: Medical Emergencies: For questions or emergencies related to your hospital stay, please contact the Inpatient Behavioral Health Unit at [phone]. A psychiatric technician is on-call 27/09 for the Behavioral Health Unit for emergencies At any time you feel your situation is an emergency, you may also call 911 immediately. . Non-Emergent Contact Non-Emergency issues call your: Primary Care Provider, Psychiatrist, Therapist Advance Directives Existing Advance Directive: No Do You Have an Existing Mental: No Existing Living Will: No Existing Power of Boat Repairer: No Advance Directives Info Given: To Pt/S.O. Discharge Summary Admission HPI Per the Admitting provider: Please see attached H&P Consultations Dr. Ariza evaluated lower extremity numbness, and in turn, consulted Dr. Ivy from neurology. Dr. Ivy felt the numbness was likely from pressure against a nerve while obtunded. Neurontin was prescribed and f/u with Dr. Ivy recommended post discharge. Hospital Course (1) Major depressive disorder, single episode, severe without psychotic features 04/02 - Continue Cymbalta 30 mg. daily titrating as tolerated - Family meeting with held yesterday - Arrange aftercare - Q 15 min checks for safety - Encourage participation in group and individual counseling. - Assist the patient to learn and utilize additional healthy coping strategies. 04/03 -Increase Cymbalta to 60mg to further address depression and anxiety. (2) RITA (generalized anxiety disorder) 04/02 - Meds as above - Expose the patient to mindfulness, relaxation exercises, breathing exercises. - Encourage exercise - Prn vistaril for anxiety or sleep 04/03 -Increase Cymbalta to 60mg to further address depression and anxiety. (3) Ankylosing spondylitis 04/02 - Hysterectomy 1.5 months ago has been helpful in alleviating pain - Will continue Celebrex 200 mg. BID (4) Lower extremity numbness Risk Factors Assessment : Yes /single/: Yes () Higher / Fall in social status: No Access to guns: No Health problems: Yes Mental Health Diagnoses: No Substance use disorders: No Previous attempt: No Previous psychiatric stay: No Smoker: No Protective Factors Assessment Caodaism beliefs: Yes : Yes Employed: Yes Stable relationships: No Supportive family: Yes Absence of risk factors above: Yes Day of Discharge Assessment COURSE OF HOSPITALIZATIONS: The patient had initially been life flighted to [facility] following her OD. After several days and medical stabilization , she was transferred to our facility for voluntary treatment. during her 5 days with us she was stabilized on Cymbalta 60 mg. which she tolerated without side effect. Family meeting was held with her and it was decided that they would separate for the foreseeable future, and she would live with her parents. She was accepting of this, with the hope that they would be able to think about their relationship and whether they wanted to try to work on it. She denied SI throughout her stay, was forward thinking. Consultation was obtained with Dr. Ariza for LLE numbness and in turn neurology, Dr. Ivy was consulted. Symptoms likely secondary to nerve compression while obtunded, was provided Neurontin 300 mg. TID with follow up with Dr. Ivy as an OP. DAY OF DISCHARGE ASSESSMENT: The patient is requesting discharge today. She continues to deny SI and is planning to return to work on Tuesday. She will live with her parents and travel to [place] for her psychiatric care. Today her gait and station are WNL. Eye contact is good. Affect is restricted, but able to smile. Speech is of normal rate, volume and tone. Thoughts are organized and goal directed, and without evidence of thought disorder. Recent/ remote memory intact per conversation. Intelligence estimated to be average. Insight and judgement improved over admission. Tobacco Cessation at Discharge FDA approved Prescription: non-smoker
[2016-04-09 13:36] LABS: NORMETANEPHRINE PLASMA 67 pg/mL (<=148); TOTAL METANEPHRINE PLASMA 67 pg/mL (<=205)
== END 2016-04-05 13:25 | disposition home or self-care (01) | DRG 885 ==
LOC: C.MHU 03-31 17:10
PROVIDERS: ADMIT Psychiatry & Neurology Psychiatry; ATTEND Psychiatry & Neurology Psychiatry
DX: F32.2 Major depressive disorder, single episode, severe without psychotic features (principal); D68.51 Activated protein C resistance; F41.1 Generalized anxiety disorder; G62.9 Polyneuropathy, unspecified; G57.62 Lesion of plantar nerve, left lower limb; R20.0 Anesthesia of skin; M45.9 Ankylosing spondylitis of unspecified sites in spine; M54.16 Radiculopathy, lumbar region; Z87.891 Personal history of nicotine dependence; Z91.5 Personal history of self-harm; Z79.899 Other long term (current) drug therapy; Z79.1 Long term (current) use of non-steroidal anti-inflammatories (NSAID)

== ENCOUNTER 2017-03-25 10:37 | Day surgery (SDC) | payer OTHER ==
[2017-03-24 19:07] VITALS: BMI 29.0
--- NOTE | 2017-03-24 19:52 | History and Physical ---
History & Physical Date Mar 24, 2017. Chief Complaint left foot pain History of Present Illness The patient is a 41 year old female with complaints of left forefoot pain after a procedure 4 weeks ago. She had a 2nd IMS neurectomy and a 2nd and 3rd Calvin osteotomies. At the 4 week follow up and x-rays, it was noted that the screw was backing out of the 2nd metatarsal head. She is now being set up for surgical tx. Past Medical/Surgical History Medical Problems: (1) Ankylosing spondylitis (2) RITA (generalized anxiety disorder) (3) Factor V Leiden Allergies Coded Allergies: Garlic (Unverified Adverse Reaction, Intermediate, face reddens, nose runs , 03/24/17) Apple (Unverified Adverse Reaction, Mild, nose runs, face reddened, ) [place] (Unverified Adverse Reaction, Mild, face reddens, nose runs, 03/24/17 ) Uncoded Allergies: turkey (Adverse Reaction, Mild, face reddened, nose runs, 03/31/16) Home Medications Scheduled Ascorbic Acid (Vitamin C), 1,000 MG PO DAILY B-Complex W/ Folic Acid (Super B Complex Maxi), 1 TAB PO DAILY Celecoxib (CeleBREX), 1 CAP PO BID Duloxetine HCl (Duloxetine HCl), 60 MG PO QAM Enoxaparin (Lovenox), 40 MG SQ DAILY Ginkgo Biloba (Ginkgo Biloba), 120 MG PO DAILY Multiple Vitamins W/ Minerals (Centrum Silver), 1 TAB PO DAILY Specialty Vitamins Products (Collagen Ultra), 1,000 MG PO DAILY Spironolactone (Spironolactone), 75 MG PO DAILY Thyroid (Blacking Machine Operator Thyroid 30), 30 MG PO DAILY Thyroid ([place] Thyroid), 60 MG PO DAILY [alessandro forte], 1 TAB PO DAILY Physical Examination Skin: warm/dry, no rash, + pertinent finding (Healed incision dorsal left foot 2nd IMS) Eyes: normal inspection ENT: normal ENT inspection Head: normocephalic, atraumatic Neck: supple, no adenopathy, trachea midline Respiratory/Chest: lungs clear, normal breath sounds, no respiratory distress Cardiovascular: regular rate, rhythm Abdomen / GI: normal bowel sounds, non tender Extremities: + pertinent finding (Left foot: mild forefoot swelling. No erythema. Tender over the 2nd metatarsal head with screw head palpated. NV intact.) Neurologic/Psych: no motor/sensory deficits, alert, oriented x 3 Diagnosis left foot loosening hardware 2nd metatarsal head s/p 2nd Calvin osteotomy ~4.5 wks ago. Plan of Treatment Recommend a left foot removal screw from the 2nd metatarsal and revision 2nd metatarsal Calvin osteotomy. All potential risks, benefits, complications, alternatives, and rehab have been discussed and she wishes to proceed. She will be scheduled for 03.24.18 with Lovenox 40 mg SQ daily for DVT prophylaxis.
[~2017-03-25] VITALS: Ht 157.5 cm; Wt 71.6 kg
[~2017-03-25 10:37] MED LIST: ASCO10003 PO; B-CO-25 PO; CEFAZOLIN 2000MG IV PUSH 10 ML IV SCH; CLB/200 PO; CYM30 PO; ENOX40IN SQ; GINK120C3 PO; LACTATED RINGER'S 1000ML 1,000 ML IV SCH; MULTCHW PO; PATIENT'S HEIGHT AND/OR WEIGHT NEEDED SCH; ROPIVACAINE 0.5% 5 MG/ML 30 ML VIAL ONE; SPECCAP4 PO; SPR25 PO; THY/30 PO; THYR30TA PO; [UNRECOGNIZED DRUG - OTHER] PO
[2017-03-25 11:14] VITALS: BP 128/82; PULSE 80; TEMP 36.7; O2SAT 97; Ht 157.5 cm; Wt 71.6 kg
--- NOTE | 2017-03-25 11:19 | History & Physical Bridge Note ---
H&P Re-Evaluation Bridge Note: I have examined the patient, reviewed the History & Physical and in the interval since the performance of the History & Physical I have noted the following changes of clinical significance: No changes noted
[2017-03-25 11:58] LABS: CREATININE 0.71 mg/dl (0.60-1.20)
[2017-03-25 11:59] LABS: POTASSIUM 3.7 mmol/L (3.5-5.1)
[2017-03-25] MEDS ORDERED: ONDANSETRON INJ 2 MG/ML 2 ML VIAL IV PRN ×2 (12:45→15:45)
[2017-03-25] MEDS ORDERED: ATROPINE SULFATE 0.1 MG/ML 5ML SYR IV PRN (12:45)
[2017-03-25] MEDS ORDERED: FENTANYL CITRATE INJ 50 MCG/1 ML 2 ML VIAL IV PRN (12:45)
[2017-03-25] MEDS ORDERED: HYDROmorphone INJ 1 MG/ML SYR IV PRN (12:45)
[2017-03-25] MEDS ORDERED: EpHEDrine SULFATE INJ 50 MG/ML AMP IV PRN (12:45)
[2017-03-25] MEDS ORDERED: MIDAZOLAM HCL 1 MG/ML 2ML VIAL ONE ×2 (13:17→14:01)
[2017-03-25] MEDS ORDERED: LIDOCAINE HCL 2% 2 ML VIAL (20MG/ML) ONE (13:51)
[2017-03-25] MEDS ORDERED: DEXAMETHASONE SOD INJ 4 MG/ML VIAL ONE ×2 (13:51→15:20)
[2017-03-25] MEDS ORDERED: ONDANSETRON INJ 2 MG/ML 2 ML VIAL ONE ×2 (13:51→15:20)
[2017-03-25] MEDS ORDERED: PROPOFOL IV EMULSION 10 MG/ML 20 ML VIAL IV ONE ×2 (13:51→15:20)
[2017-03-25] MEDS ORDERED: FENTANYL CITRATE INJ 50 MCG/1 ML 2 ML VIAL ONE ×3 (13:52→14:56)
[2017-03-25] MEDS ORDERED: BUPIVACAINE 0.25% 30 ML VIAL ONE (14:10)
[2017-03-25] MEDS ORDERED: LIDOCAINE 2% 20 MG/ML 5ML SYR IV ONE (15:20)
[2017-03-25] MEDS: BACITRACIN 50000 UNIT VIAL ONE (15:21)
--- NOTE | 2017-03-25 15:29 | [facility] Post Operative Brief Note ---
Immediate Operative Summary Operative Date Mar 25, 2017. Pre-Operative Diagnosis Left foot loosening hardware 2nd metatarsal head, 2nd metatarsalgia Post-Operative Diagnosis Left foot loosening hardware 2nd metatarsal head, 2nd metatarsalgia Procedure(s) Performed Left Foot Removal Screw 2nd Metatarsal; Revision 2nd Calvin Osteotomy Surgeon Dr. Houston Stone Legal Administrative Assistant Surgeon(s) none Estimated Blood Loss none per surgeon Findings Consistent with Post-Op Diagnosis See dict Specimens A:Left foot explanted hardware Drains None Anesthesia Type General Regional Complication(s) none Disposition Accompanied Pt To Recover: no Disposition: Recovery Room / PACU
[2017-03-25] MEDS ORDERED: OXYC-57 PO (15:39)
--- NOTE | 2017-03-25 15:43 | Discharge Instructions ---
Discharge Instructions Date of Service Mar 25, 2017. Visit Reason for Visit: Left Foot Mechanical Loosening Of Unspecified Inte Discharge Discharge Diagnosis / Problem: Left foot loosening hardware 2nd metatarsal head , 2nd metatarsalgia Discharge Goals Goal(s): Decrease discomfort, Improve function, Increase independence Activity Recommendations Activity Limitations: per Instructions/Follow-up section Weightbearing Status: Left weightbearing (on heel only) Anesthesia . Post Anesthesia Instructions: If you have had General Anesthesia or IV Sedation: * Do not drive today. * Resume driving when surgeon permits. * Do not make important decisions or sign legal documents today. * Call surgeon for: 1. Temperature elevations greater than 101 degrees F. 2. Uncontrollable pain. 3. Excessive bleeding. 4. Persistent nausea and vomiting. 5. Medication intolerance (nausea, vomiting or rash). * For nausea and vomiting use only clear liquids such as: tea, soda, bouillon until nausea subsides, then gradually increase diet as tolerated. * If you have any concerns or questions, call your surgeon's office. If physician is unavailable and it is an emergency, call 911 or go to the nearest emergency room. . Instructions / Follow-Up Instructions / Follow-Up ACTIVITY RECOMMENDATIONS: Limitations: Heel weight bearing only if able to tolerate. SPECIAL CARE INSTRUCTIONS: * Some drainage onto the dressing is normal and is no cause for alarm. * Some swelling is natural especially after walking. * When resting, keep your foot elevated above the level of your heart. * Call [facility] if you notice: -Increased drainage -Fever over 101 degrees F -Severe constant pain BANDAGE: * Leave bandage/cast in place unless otherwise directed. * Keep bandage/cast dry at all times. PIN CARE: * Leave pins alone if you have them. * If pins come loose or fall out, notify physician. FOLLOW UP VISIT WITH DR. LISA If appointment is not already scheduled: Please call [facility] after you get home today to schedule a follow-up appointment for [address] Lisa at . Diet Recommendations Recommended Home Diet: resume previous diet Procedures Procedures Performed: Left Foot Removal Screw 2nd Metatarsal; Revision 2nd Calvin Osteotomy Pending Studies Studies pending at discharge: no Medical Emergencies . Who to Call and When: Medical Emergencies: If at any time you feel your situation is an emergency, please call 911 immediately. . Non-Emergent Contact Non-Emergency issues call your: Surgeon Call Non-Emergent contact if: temperature is above 101.5, your pain is not controlled, your pain is worsening, wound has increased drainage, wound has increased redness . . "Provider Documentation" section prepared by Dilan Grimes. . [place] Drug Monitoring Program Search Results: patient reviewed within database, no issues identified
[2017-03-25] MEDS ORDERED: OXYCODONE/ACETAMINOPHEN 5-325 TAB PO PRN (15:45)
[2017-03-25] MEDS ORDERED: MoRPHine SULFATE 2 MG/ML CARP IV PRN (15:45)
[2017-03-25] MEDS ORDERED: OXYCODONE HCL IR 5 MG TAB (IMMEDIATE RELEASE) PO PRN (15:45)
[2017-03-25] MEDS ORDERED: ACETAMINOPHEN 325 MG TAB PO PRN (15:45)
--- NOTE | 2017-03-25 15:59 | DIAGNOSTIC IMAGING REPORT ---
L FOOT 2 VIEWS HISTORY: 41 years-old Female LT FOOT REMOVE HARDWARE AND REVISION status post hardware removal COMPARISON: None available TECHNIQUE: 2 spot fluoroscopic images of the left foot were obtained utilizing 3.0 seconds fluoroscopy time FINDINGS: There are 2 cannulated screws present within the distal metaphyseal portion of the second metatarsal with a single cannulated screw present within the distal metaphyseal portion of the third metatarsal. Alignment appears anatomic. IMPRESSION: Fluoroscopic assistance as above. The above report was generated using voice recognition software. It may contain grammatical, syntax or spelling errors. Electronically signed by: Aaron Resendiz M.D. 03/25/2017 3:58 PM Dictated Date/Time: 03/25/2017 3:55 PM
[2017-03-25 16:15] VITALS: BP 140/90; PULSE 97; TEMP 36.7; O2SAT 100
[2017-03-25 16:45] VITALS: BP 123/75; PULSE 86; TEMP 36.7; O2SAT 100
--- NOTE | 2017-03-25 17:39 | Anesthesiology Progress Note ---
Anesthesia Post Op Note Date & Time Mar 25, 2017 at 17:39 Vital Signs Pain Intensity: 0 Vital Signs Past 12 Hours Date Time Temp Pulse Resp B/P (MAP) Pulse Ox O2 Delivery O2 Flow Rate FiO2 03/25/17 16:45 36.7 86 22 123/75 100 Room Air 03/25/17 16:15 36.7 97 22 140/90 100 Room Air 03/25/17 16:10 36.6 102 22 140/90 100 Room Air 03/25/17 16:00 94 20 128/88 99 Room Air 03/25/17 15:50 89 19 134/78 100 Oxymask 10 03/25/17 15:40 83 24 128/80 100 Oxymask 10 03/25/17 15:33 36.2 99 18 150/84 100 Oxymask 10 03/25/17 11:14 36.7 80 18 128/82 (97) 97 Room Air Notes Mental Status: alert / awake / arousable, participated in evaluation Pt Amnestic to Procedure: Yes Nausea / Vomiting: adequately controlled Pain: adequately controlled Airway Patency, RR, SpO2: stable & adequate BP & HR: stable & adequate Hydration State: stable & adequate Anesthetic Complications: no major complications apparent
--- NOTE | 2017-03-25 19:20 | OPERATIVE REPORT ---
DATE OF OPERATION: 03/25/2017 PREOPERATIVE DIAGNOSES: 1. Left foot loosened screw, second metatarsal head. 2. Second metatarsalgia. POSTOPERATIVE DIAGNOSIS: Same. PROCEDURE: 1. Left foot revision second Calvin osteotomy. 2. Removal of screw, second metatarsal head. SURGEON: Dr. Stone. MEDICAL ENGINEER: None. ANESTHESIA: General with regional anesthetic. SPECIMENS: Removed hardware. DRAINS: None. COMPLICATIONS: None. BLOOD LOSS: 1 mL. PERTINENT HISTORY: This is a 41-year-old female who had previously undergone second and third Calvin osteotomies. She had an uncomplicated recovery course; however, then began to have discomfort in the forefoot of her left foot. She then had radiographs in the office and noted loosening of the screw. She was then scheduled for removal of the screw and revision of her osteotomy; however, had worsening pain over the next week, having increasing difficulty with weightbearing and walking. Failed conservative management was then scheduled for surgery as indicated. All potential risks, benefits, complications, alternatives, rehab, potential for incomplete relief of symptoms, need for further surgery, DVT, PE, , persistent pain, swelling, scarring, weakness, neurovascular injury, wound complications, bone fracture, nonunion, malunion and need for revision osteotomy was discussed with the patient. The patient decided to proceed with the procedure as indicated. DESCRIPTION OF PROCEDURE: The patient was taken to the operative suite, placed supine on the operating room table. After review of consent and identification of proper operative site, the patient was anesthetized, LMA was placed. The patient had previously received a regional block in the preop holding area. The left lower extremity was then sterilely prepped and draped in usual fashion, elevated, and exsanguinated with an Esmarch bandage and Esmarch tourniquet applied over sterile surgical towel at the level of the ankle. Next, a 15 blade scalpel was used to make an incision over the dorsum of the left foot site of the prior incision. The incision was deepened through subcutaneous tissue. Meticulous hemostasis was achieved with electrocautery. Full thickness skin flaps were developed. The second extensor tendon was identified, freed, retracted, and protected. The prior surgical approach was identified and then continued down to the level of the second metatarsal. Next, the screw which had been noted to have been loosened, per radiographs was obviously loosened and approximately 60% backed out of the second metatarsal. The screw with lost fixation of the osteotomy and there was noted to be gross motion at the osteotomy. The screw was removed and the small hole was then curetted with a small curette. The wound was copiously irrigated until clear with sterile normal saline with bacitracin. This was then followed by further exposure of the second metatarsal head. The osteotomy was exposed with a 6 mm osteotome and loosened of soft tissue with the osteotome. Next, a sagittal saw was then used to revise the second metatarsal oblique osteotomy. Once this was completed and a fresh bleeding bone was encountered, the dorsal portion of the osteotomy was then resected with a rongeur. Next, there was noted to be no further impingement noted with proposed range of motion of the second proximal phalanx followed by stabilization of the second metatarsal head osteotomy with two 1.5 mm modular handset stainless steel Synthes screws were placed under direct visualization and confirmed with C-arm fluoroscopy. The second metatarsophalangeal joint was then taken through a range of motion, there was noted be no impingement with stable alignment and fixation of the osteotomy. Next, the wound was once again irrigated with sterile normal saline until clear. The final radiographs were obtained in AP and lateral projections noting anatomic sikhism of the second metatarsal head and stable screw fixation. This was then followed by closure of the skin with interrupted 4-0 nylon sutures and a sterile compressive forefoot dressing was applied overwrapped with a Xeroform gauze, sterile 4 x 4's, 3 inch Conform roll and a Coban. The tourniquet was released and the patient was awakened and taken to recovery in stable condition. I attest to the content of the Intraoperative Record and any orders documented therein. Any exception s are noted below.
== END 2017-03-25 17:05 | disposition home or self-care (01) ==
LOC: C.ACU 10:37
PROVIDERS: ATTEND Orthopaedic Surgery Sports Medicine
DX: T84.498A Other mechanical complication of other internal orthopedic devices, implants and grafts, initial encounter (principal); Y83.1 Surgical operation with implant of artificial internal device as the cause of abnormal reaction of the patient, or of later complication, without mention of misadventure at the time of the procedure; M77.42 Metatarsalgia, left foot; D68.51 Activated protein C resistance; M45.9 Ankylosing spondylitis of unspecified sites in spine